=== PATIENT | male | born 1980 | race Caucasian/White ===

== ENCOUNTER 2021-04-02 15:12 | Observation (INO) | payer OTHER ==
[~2021-04-02] VITALS: Ht 180.3 cm; Wt 111.1 kg
[2021-04-02 16:15] LABS: HEMOGLOBIN 15.7 gm/dl (14.0-17.5); RED BLOOD COUNT 5.06 M/UL (4.20-5.50); WHITE BLOOD COUNT 9.8 K/UL (4.5-11.0)
[2021-04-02 16:45] LABS: BUN/CREATININE RATIO 13 (0-10)
[2021-04-02] MEDS ORDERED: LIPITOR40 MG PO (22:07)
[2021-04-02] MEDS ORDERED: HYDROCHLOROTHIA25 MG PO (22:08)
[2021-04-02] MEDS ORDERED: SINGULAIR10 MG PO (22:08)
[2021-04-02] MEDS ORDERED: LOSARTAN POTASS25 MG PO (22:08)
[2021-04-02] MEDS ORDERED: K-TAB ER10 MEQ PO (22:09)
--- NOTE | 2021-04-03 00:34 | NUR ---
NOTIFIED DR ZHANG OF CRITICAL POTASSIUM LEVEL. RECIEVED KASSYRS. WILL CONTINUE TO MONITOR.
[2021-04-03 08:31] LABS: HEMOGLOBIN 15.2 gm/dl (14.0-17.5); RED BLOOD COUNT 4.92 M/UL (4.20-5.50); WHITE BLOOD COUNT 10.6 K/UL (4.5-11.0)
[2021-04-03 08:52] LABS: BUN/CREATININE RATIO 17 (0-10)
[2021-04-03] MEDS ORDERED: HYDROCODON-ACE1 EAC4 PO (10:09)
[2021-04-03] MEDS ORDERED: K-DUR TAB 20 M20 MEQ PO (10:09)
== END 2021-04-03 12:40 | disposition home or self-care (01) ==
LOC: ER1 15:12 → MED SURG 4 18:20 → CDU 18:20 → MED SURG 4 20:49
PROVIDERS: Physician Assistant; ADMIT Surgery
DX: S22.22XA Fracture of body of sternum, initial encounter for closed fracture (principal); I10 Essential (primary) hypertension; E78.5 Hyperlipidemia, unspecified; Z86.73 Personal history of transient ischemic attack (TIA), and cerebral infarction without residual deficits; Z82.49 Family history of ischemic heart disease and other diseases of the circulatory system; Z83.3 Family history of diabetes mellitus; V89.2XXA Person injured in unspecified motor-vehicle accident, traffic, initial encounter; Z20.822 Contact with and (suspected) exposure to COVID-19
CPT/HCPCS: 36415; 70450; 71260; 72125; 73562; 73660; 80053; 82550; 82553; 83690; 83874; 84132; 84484; 85025; 93005; 99285; G0378; J3480; Q9967; U0002